=== PATIENT | male | born 1995 | race African-American/Black ===

== ENCOUNTER 2019-06-01 22:58 | Inpatient (IN) | payer OTHER ==
[~2019-06-01] VITALS: Ht 175.3 cm; Wt 62.4 kg
[2019-06-01 23:54] LABS: HEMATOCRIT 51.5 % (42.0-52.0); HEMOGLOBIN 15.8 g/dl (13.5-17.5); MEAN CORPUSCULAR HEMOGLOBIN 28.8 pg (27.0-33.0); MEAN CORPUSCULAR HGB CONC 30.7 g/dl (32.0-36.5); MEAN CORPUSCULAR VOLUME 93.8 fl (80.0-96.0); PLATELET COUNT, AUTOMATED 381 10^3/uL (150-450); RED BLOOD COUNT 5.49 10^6/uL (4.30-6.10); WHITE BLOOD COUNT 5.6 10^3/uL (4.0-10.0)
[2019-06-02 00:20] LABS: AMPHETAMINES LEVEL URINE NEGATIVE (NEGATIVE); BARBITURATES URINE NEGATIVE (NEGATIVE); BENZODIAZEPINES URINE NEGATIVE (NEGATIVE); CANNABINOIDS URINE NEGATIVE (NEGATIVE); COCAINE METABOLITE URINE NEGATIVE (NEGATIVE); METHADONE URINE NEGATIVE (NEGATIVE); OPIATES URINE NEGATIVE (NEGATIVE); PHENCYCLIDINE URINE NEGATIVE (NEGATIVE)
[2019-06-02 00:35] LABS: ACETAMINOPHEN LEVEL < 2.0 UG/ML (10.0-30.0); ALBUMIN 4.7 GM/DL (3.2-5.2); ALT/SGPT 31 U/L (12-78); BILIRUBIN,DIRECT 0.2 MG/DL (0.0-0.2); BILIRUBIN,TOTAL 0.6 MG/DL (0.2-1.0); BLOOD UREA NITROGEN 18 MG/DL (7-18); CALCIUM LEVEL 9.4 MG/DL (8.5-10.1); CARBON DIOXIDE LEVEL 24 MEQ/L (21-32); CHLORIDE LEVEL 102 MEQ/L (98-107); CREATININE FOR GFR 1.33 MG/DL (0.70-1.30); GLOMERULAR FILTRATION RATE > 60.0 (>60); GLUCOSE, FASTING 81 MG/DL (70-100); POTASSIUM SERUM 3.7 MEQ/L (3.5-5.1); SODIUM LEVEL 137 MEQ/L (136-145); TOTAL PROTEIN 8.8 GM/DL (6.4-8.2)
[2019-06-02 00:36] LABS: ETHYL ALCOHOL (ETHANOL) < 0.003 % (0.000-0.010)
[2019-06-02] MEDS ORDERED: ACETAMINOPHEN TAB 650MG DOSE (2X325MG) PO PRN (17:00)
[2019-06-02] MEDS ORDERED: traZODone 50 MG TAB PO PRN (17:00)
[2019-06-02] MEDS ORDERED: OLANZapine ORAL DISINTEGRATING TAB 5MG PO PRN (17:00)
[2019-06-02] MEDS ORDERED: MOM 30ML SUSPENSION UDC PO PRN (17:00)
[2019-06-02] MEDS ORDERED: MAALOX 30 ML SUSP *UDC PO PRN (17:00)
[2019-06-02 18:54] VITALS: BP 118/56
[2019-06-03 07:07] VITALS: BP 128/64
--- NOTE | 2019-06-03 10:51 | MHHPEPDOC ---
General Date Of Admission: Jun 02, 2019 Legal Status: 9.39 Chief Complaint "My friend misunderstood what I said" History of Present Illness HISTORY OF THE PRESENT ILLNESS: Patient is a 24 -year-old , AD, male, with no history of psychiatric illness who was brought to ED by [facility] on a 9.41 after pt's friend called them stating that pt told him he took and OD last weekend and was worried pt would actually kill himself as the pt has been receiving threatening text messages from somebody who is telling to pt to kill himself. When pt was seen in the ED he he had taken an OD last weekeng and denies telling his friend he was planning on killing himself this weekend. Pt denied any SI/HI in the ED. He has no history of SA or self-harm behavior. He denies any symptoms of depression in the ED although the ED report pt's affect as being flat. ED staff spoke with pt's SSG Merino who told ED staff he had spoken with the pt's friend that called the [facility] and the friend told him that pt took an OD of his anxiety meds last week and friend went to pt's [employer] [facility] and stopped pt from taking more. Per SSG Merino pt's friend told him the pt had made statements about killing himself this weekend. Psychiatric Review of Systems Depression (2 or more weeks): difficulty concentrating Simin (4 or more days of): denies Psychosis: denies PTSD: denies Anxiety: situational anxiety, stressor related anxiety Anxiety/ 6 months or more of: difficulty concentrating Past Psychiatric History Previous Psychiatric Diagnosis: denies Previous Psychiatric Admissions: denies Suicide Attempts: denies Psychiatric Follow-up: [facility] but has not follow-up since 12/2018 "b/c I haven't need to." Psychiatric medications: denies Past Medical History Medical Problems denies Head Injury: No Seizures: No Hospitalizations: No Surgeries: No Family Medical/Psychiatric HX Medical Problems noncontributory Addiction History nicotine (daily use), other (utox neg) Social History Childhood: born and raised in [place], [place] raised by his mother, knew his father but not in his father, has siblings on his father's side that he didn't grow up with, good childhood. states mother has cancer and was looking forward to her visiting him this weekend, is concerned about her health. 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 Social Support: best friend and mother Legal: denies Marital: single, never , no kids, homosexual Mental Status Examination General Appearance: well groomed, appears stated age, hospital scubs/clothing Build: average Demeanor: average Eye Contact: average Activity: average Behavior: cooperative, other (not fully reliable regarding friend's statements about pt to [facility] and pt stating his friend was worried about him but he made no such statements nor took an OD) Speech: clear, spontaneous, reg/rate,rhythm,volume Mood: euthymic Mood "fine" Affect: full, appropriate, congruent Thought Process: logical/linear Thought Content (Delusions): none reported, denies SI, HI, AVH Thought Content (Other): none reported Thought Content (Aggressive): none reported Perception (Hallucinations): none reported Perception (Other): none reported Cognition (Impairment of): none reported Cognition(Intelligence Est.): average Oriented: Awake, Alert, Oriented times three Insight: fair Judgment: Fair Psychosis: Denies Diagnoses Depression unspecified R/o adjustment d/o with depressed mood A-FIB/CHADSVASC A-FIB History Current/History of A-Fib/PAF?: No Assessment Pt seen during treatment team and states his friend was just worried about him so told [facility] and pt's SSG things that weren't true due to concern for pt after pt has been receiving text messages from an individual calling him names and telling him to kill himself. Pt stated that the text messages did really bother him and that he had been planning on changing his number to stop them and had reported the text messages to the proper authorities so that they could be investigated. He states he had been looking forward to picking up his mother and bring her here to visit him as she currently has cancer and wants to have to spend with her. States he has a good relationship with his mother. He denies that he took an OD last week, denies that he's even prescribed medications so doesn't have anxiety medication to take, denies thoughts of SI/HI, denies any symptoms of depression and calls himself a easy-going happy person typically. He is possibly unreliable regarding his denial of OD, SI compared to his friend's statements. Pt declined starting medication for mood as he doesn't feel he needs any and is agreeable to attending group therapy as his treatment on the unit. He denies SI/HI, hallucinations, delusions. Feels safe here. Initial Treatment Plan 1. Patient was admitted on a 9.39 status. 2. Complete history was obtained. 3. With patients permission, family will be contacted and database will be expanded. 4. Patients medication regimen will be reviewed and changed accordingly. 5. Patient will be provided with protected environment. 6. Patient will be treated with individual, group, and milieu therapies. 7. Patient will receive supportive psych-education. 8. Discharge planning will commence immediately. 9. Outpatient follow-up treatment will be strongly recommended. 10. The initial treatment plan will focus initially on: * Depression. * Risk for suicide. 11. monitor safety ESTIMATED LENGTH OF STAY: 3-5 DAYS. TIME SPENT COUNSELING AND COORDINATING INITIAL CARE: 60 minutes. Vital Signs Vital Signs Date Time Temp Pulse Resp B/P (MAP) Pulse Ox O2 Delivery O2 Flow Rate FiO2 06/03/19 08:04 Room Air 06/03/19 07:07 98.2 99 16 128/64 (85) 06/02/19 18:54 100 Medications No Active Prescriptions or Reported Meds Allergies Coded Allergies: Blueberry (Verified Allergy, Unknown, 06/02/19) TOM AGUILAR DO Jun 03, 2019 09:39
[2019-06-03] MEDS: NICOTINE 21MG/24HR 1 EA TRANSDERMAL TD SCH (14:18)
[2019-06-03 17:08] VITALS: BP 118/71
--- NOTE | 2019-06-03 18:24 | HPE ---
DATE OF ADMISSION: 06/02/2019 Date of Service: 06/03/2019 HISTORY OF THE PRESENT ILLNESS: Please refer to psychiatric history and evaluation for further details on this admission. This examination and history is intended for medical issues which may need treatment, followup, or consult on this 24-year-old male. ALLERGIES: BLUEBERRY. PRIMARY CARE PROVIDER: [facility]. SOCIAL HISTORY: He is a single soldier, currently stationed at [employer]. Ethyl alcohol (EtOH): Once a month. Smokes: A cigarette maybe once a week, and he vapes daily. Recreational drug use: None. PAST MEDICAL HISTORY: Depression, anxiety. PAST SURGICAL HISTORY: [place] teeth extraction. MEDICATIONS: None. FAMILY HISTORY: Father is alive and well, age 37. Mother is alive and well, age 39. MEDICATIONS: None. LABORATORY STUDIES: White count 5.6, hemoglobin 15.8, hematocrit 51.5, platelets 381, electrolytes were normal, BUN was 18, creatinine 1.3, TSH 1.98. Toxicology was negative. REVIEW OF SYSTEMS: Eleven systems review was done. The patient wears glasses, otherwise unremarkable. PHYSICAL EXAMINATION: A 24-year-old cooperative male in no acute distress. Height 69 inches, weight 65.45 kg, body mass index (BMI) 21.3, blood pressure 128/64, pulse 80, respirations 16, temperature 98, oxygen saturation 100% on room air. The patient is alert and oriented times three. Pupils are equal and reactive to light. Extraocular movements intact. Cornea and sclerae clear. Conjunctivae is normal. No facial asymmetry. Pharynx: Tongue and gums pink and moist. Tongue is midline. Neck is supple without lymphadenopathy. No thyromegaly. No goiter. Carotids 2+ without bruits. Chest is clear to auscultation without wheeze or retractions. Heart is regular. Abdomen: Benign. Bowel sounds are positive. Genitalia/Rectal: Not done. Extremities: Show equal strength, full range of motion. No cyanosis, clubbing or edema. Peripheral pulses equal and palpable bilaterally. Skin: Warm and dry. Cranial nerves III-XII grossly intact. IMPRESSION AND PLAN: Psychiatric plan per psychiatry. Slightly elevated creatinine; patient encouraged to drink fluids. Recheck in the morning. No other acute medical issues.
[2019-06-04 06:32] VITALS: BP 119/58
[2019-06-04 08:27] LABS: BLOOD UREA NITROGEN 16 MG/DL (7-18); CALCIUM LEVEL 9.1 MG/DL (8.5-10.1); CARBON DIOXIDE LEVEL 27 MEQ/L (21-32); CHLORIDE LEVEL 106 MEQ/L (98-107); CREATININE FOR GFR 1.07 MG/DL (0.70-1.30); GLOMERULAR FILTRATION RATE > 60.0 (>60); GLUCOSE, FASTING 86 MG/DL (70-100); POTASSIUM SERUM 4.1 MEQ/L (3.5-5.1); SODIUM LEVEL 139 MEQ/L (136-145)
[2019-06-04] MEDS: NICOTINE 21MG/24HR 1 EA TRANSDERMAL TD SCH (09:15)
[2019-06-04 16:31] VITALS: BP 135/82
--- NOTE | 2019-06-04 17:57 | MHIPN ---
DATE: 06/04/2019 VITAL SIGNS: Blood pressure 119/58, pulse 84, temperature 97.7. CHIEF COMPLAINT: Says is doing okay. SUBJECTIVE: He is seen for followup in the presence of staff. He says that he feels better, and that he has been doing well, says being here has given him time to think about matters and attending groups, which he finds useful. MENTAL STATUS EXAMINATION: Neat, cooperative. There is no agitation. No psychomotor retardation. He is coherent. Affect is fairly broad. Denies any thoughts of harming himself or anyone else, nor of any psychosis. Cognition is grossly intact. Judgment is good, it is improved. Insight is possibly improved. ASSESSMENT: 1. Unspecified depressive disorder. 2. Rule out adjustment disorder with depressed mood. PLAN: Continue current care and observations. Encourage participation in activities in the unit. Should this progress continue, it is anticipate he will be discharged soon.
[2019-06-05 06:25] VITALS: BP 102/53
[2019-06-05] MEDS: NICOTINE 21MG/24HR 1 EA TRANSDERMAL TD SCH (09:36)
[2019-06-05 16:50] VITALS: BP 109/56
[2019-06-06 06:30] VITALS: BP 120/68
[2019-06-06 08:11] VITALS: BP 120/68
--- NOTE | 2019-06-06 08:42 | MHDSPDOC ---
[facility] Discharge Summary Discharge Summary DATE OF ADMISSION: Jun 02, 2019 at 4:49 pm DATE OF DISCHARGE: Jun 06, 2019 DISCHARGE DIAGNOSES: Depression unspecified R/o adjustment d/o with depressed mood REASON FOR ADMISSION: Patient is a 24 -year-old , AD, male, with no history of psychiatric illness who was brought to ED by [facility] on a 9.41 after pt's friend called them stating that pt told him he took and OD last weekend and was worried pt would actually kill himself as the pt has been receiving threatening text messages from somebody who is telling to pt to kill himself. When pt was seen in the ED he he had taken an OD last weekeng and denies telling his friend he was planning on killing himself this weekend. Pt denied any SI/HI in the ED. He has no history of SA or self-harm behavior. He denies any symptoms of depression in the ED although the ED report pt's affect as being flat. ED staff spoke with pt's SSG Wilber who told ED staff he had spoken with the pt's friend that called the [facility] and the friend told him that pt took an OD of his anxiety meds last week and friend went to pt's [facility] room and stopped pt from taking more. Per SSG Wilber pt's friend told him the pt had made statements about killing himself this weekend. Pt seen during treatment team and states his friend was just worried about him so told [facility] and pt's SSG things that weren't true due to concern for pt after pt has been receiving text messages from an individual calling him names and telling him to kill himself. Pt stated that the text messages did really bother him and that he had been planning on changing his number to stop them and had reported the text messages to the proper authorities so that they could be investigated. He states he had been looking forward to picking up his mother and bring her here to visit him as she currently has cancer and wants to have to spend with her. States he has a good relationship with his mother. He denies that he took an OD last week, denies that he's even prescribed medications so doesn't have anxiety medication to take, denies thoughts of SI/HI, denies any symptoms of depression and calls himself a easy-going happy person typically. He is possibly unreliable regarding his denial of OD, SI compared to his friend's statements. Pt declined starting medication for mood as he doesn't feel he needs any and is agreeable to attending group therapy as his treatment on the unit. He denies SI/HI, hallucinations, delusions. Feels safe here. CONSULTANTS INVOLVED: none TREATMENT AND PROGRESS ON THE UNIT : Pt seen and states that his mood is "good" and is looking forward to going home with his Tara today. States he slept well last night. He is attending groups and finding them helpful, states he opened up and learned things about himself more. He denies depression, anxiety, insomnia, SI/HI, hallucinations, delusions. Pt feels safe here. DISCHARGE ASSESSMENT: Pt was admitted to [facility], seen for psychiatric assessment and monitored for safety. He did not feel he need to start any medication at this time so was not started on any as he preferred to try outpatient therapy as treatment first. He was provided trazodone 50mg qhs prn insomnia. He attended groups daily during his stay and found them very helpful, learned a lot he stated. His symptoms improved with treatment. On day of discharge he denied depression, anxiety, insomnia, SI/HI, hallucinations, delusions. He was discharged home after Tara meeting with follow-up at [facility]. He felt safe for discharge. MENTAL STATUS EXAMINATION ON DISCHARGE: General Appearance: well groomed, appears stated age, hospital scrubs/clothing Build: average Demeanor: average Eye Contact: average Activity: average Behavior: cooperative Speech: clear, spontaneous, reg/rate,rhythm,volume Mood: euthymic Mood "good" Affect: full, appropriate, congruent Thought Process: logical/linear Thought Content (Delusions): none reported, denies SI, HI, AVH Thought Content (Other): none reported Thought Content (Aggressive): none reported Perception (Hallucinations): none reported Perception (Other): none reported Cognition (Impairment of): none reported Cognition(Intelligence Est.): average Oriented: Awake, Alert, Oriented times three Insight: good Judgment: good Psychosis: Denies MEDICATIONS ON DISCHARGE: none PLAN/FOLLOWUP ARRANGEMENTS: D/c home with Tara with follow-up at [facility]. The amount of time spent in the coordination of care for this patient was approximately 30 minutes. Vital Signs/I&Os Vital Signs Date Time Temp Pulse Resp B/P (MAP) Pulse Ox O2 Delivery O2 Flow Rate FiO2 06/06/19 08:11 98.8 54 16 120/68 100 Room Air Medications No Active Prescriptions or Reported Meds Allergies Coded Allergies: Blueberry (Verified Allergy, Unknown, 06/02/19) TOM AGUILAR DO Jun 06, 2019 8:42 am
--- NOTE | 2019-06-06 18:42 | MHIPN ---
DATE: 06/05/2019 VITAL SIGNS: Blood pressure 102/53, pulse 59, temperature 97.5. CHIEF COMPLAINT: Says feels okay. SUBJECTIVE: He is seen for followup. Indicates feels okay, moods have been good. Says slept well and feels rested, though a bit tired, puts this down to taking the trazodone last night. Says he contacted his best friend and that went well. MENTAL STATUS EXAMINATION: He is neat. He is cooperative. There is no agitation. No psychomotor retardation. He is coherent. Affect is restricted but reactive. Denies any thoughts of harming himself or anyone else. No evidence of any psychosis. Cognition is grossly intact. Judgment is good. Insight is improved. ASSESSMENT: 1. Unspecified depressive disorder. 2. Rule out adjustment disorder with depressed mood. As he is doing well, I encourage participation in activities in the unit and we will continue with current care. It is anticipated that he will be discharged soon. He will be seeing the inpatient psychiatrist tomorrow.
== END 2019-06-06 10:13 | disposition home or self-care (01) | DRG 881 ==
LOC: M ED 22:58 → M ED INP 06-02 16:49 → M PSY 06-02 19:40
PROVIDERS: ADMIT Psychiatry & Neurology Addiction Medicine; ATTEND Psychiatry & Neurology Psychiatry
DX: F32.9 Major depressive disorder, single episode, unspecified (principal); F43.21 Adjustment disorder with depressed mood; F17.290 Nicotine dependence, other tobacco product, uncomplicated